=== PATIENT | male | born 1965 | race Caucasian/White ===

== ENCOUNTER 2019-04-26 04:36 | Emergency (ER) | payer BC ==
[2019-04-26] MEDS ORDERED: Oxymetazoline HCl 0.05% (30 ML BOT) ONE (04:48)
[2019-04-26] MEDS ORDERED: Tranexamic Acid 1,000 MG/10 ML VIAL ONE ×2 (04:48→05:38)
== END 2019-04-26 06:53 | disposition home or self-care (01) ==
LOC: ERS 04:36
DX: R04.0 Epistaxis (principal); I10 Essential (primary) hypertension; Z79.82 Long term (current) use of aspirin; Z79.899 Other long term (current) drug therapy
CPT/HCPCS: 30901

== ENCOUNTER 2021-03-04 09:46 | Outpatient (CLI) | payer BC | END 2021-03-04 09:47 | disposition home or self-care (01) | LOC: BICULT 09:46 | PROVIDERS: ATTEND Urology | DX: R31.29 Other microscopic hematuria (principal); N32.89 Other specified disorders of bladder | CPT/HCPCS: 76770 ==

== ENCOUNTER 2022-08-28 07:30 | Outpatient (CLI) | payer BC | END 2022-08-28 07:31 | disposition home or self-care (01) | LOC: BICULT 07:30 | PROVIDERS: ATTEND Nurse Practitioner Family | DX: R74.8 Abnormal levels of other serum enzymes (principal); K76.0 Fatty (change of) liver, not elsewhere classified | CPT/HCPCS: 76705 ==